=== PATIENT | female | born 1965 | race Hispanic/Latino ===

== ENCOUNTER 2021-06-19 15:21 | Emergency (ER) | payer OTHER ==
[2021-06-19 16:16] LABS: Absolute Lymphocytes (CBC) 2.5 K/uL (0.7-4.9); Hematocrit 45.1 % (36.0-45.0); Lymphocytes % 24.3 % (15.3-44.8); MPV 6.8 fL (7.6-11.3); RBC Red Blood Cell Count 5.19 M/uL (3.86-4.86)
--- NOTE | 2021-06-19 16:21 | RAD REPORT ---
EXAM DESCRIPTION: CT - Head Brain Wo Cont - 06/19/2021 4:10 pm CLINICAL HISTORY: left arm numbness/pain Headache, drowsiness COMPARISON: HEAD BRAIN W O CONTRAST dated 04/13/2010 TECHNIQUE: All CT scans are performed using dose optimization technique as appropriate and may inclu de automated exposure control or mA/KV adjustment according to patient size. FINDINGS: No intracranial hemorrhage, hydrocephalus or extra-axial fluid collection.No areas of brai n edema or evidence of midline shift. The paranasal sinuses and mastoids are clear. The calvarium is intact. IMPRESSION: No acute intracranial abnormality.
[2021-06-19 16:39] LABS: Albumin 3.8 g/dL (3.4-5.0); Bilirubin Direct 0.1 mg/dL (0-0.2); Bilirubin Total 0.6 mg/dL (0.2-1.0); Magnesium 2.3 mg/dL (1.8-2.4); Potassium 3.8 mmol/L (3.5-5.1); Protein, Total 7.7 g/dL (6.4-8.2); Troponin High Sensitivity 5.6 pg/mL (<58.9)
[2021-06-19 16:54] LABS: Urine Blood Trace-intact (Negative); Urine Glucose 3+ (Negative); Urine Protein Negative (Negative); Urine Specific Gravity 1.025 (1.005-1.030); Urine pH 5.5 (5.0-7.0)
[2021-06-19] MEDS ORDERED: KETOROLAC 30 MG/ML INJ ONE (17:09)
[2021-06-19] MEDS ORDERED: LORazepam 2 MG/ML VIAL ONE (17:19)
[2021-06-19 17:29] LABS: Protime INR 1.01
--- NOTE | 2021-06-19 17:41 | RAD REPORT ---
EXAM DESCRIPTION: RAD - Chest Single View - 06/19/2021 5:35 pm CLINICAL HISTORY: left arm pain/numbness Chest pain. COMPARISON: CHEST SINGLE VIEW dated 09/20/2010; CHEST SINGLE VIEW dated 06/12/2009 FINDINGS: Portable technique limits examination quality. The lungs are grossly clear. The heart is normal in size. No displaced fractures. IMPRESSION: No acute intrathoracic process suspected.
--- NOTE | 2021-06-19 18:11 | ER ---
Nurse's Notes [facility] Name: Evon Dumont Age: 56 yrs Sex: Female : 1965 Arrival Date: 06/19/2021 Time: 15:28 Bed 13 Private MD: Diagnosis: Paresthesia of skin-left arm;Pain in left arm Presentation: 06/19 15:31 Chief complaint: Patient states: L arm pain and numbness for 5 days getting ll1 progressively worse. No trauma or falls. Coronavirus screen: Vaccine status: Patient reports being unvaccinated. Client denies travel out of the [place] in the last 14 days. At this time, the client does not indicate any symptoms associated with coronavirus-19. Ebola Screen: Patient denies travel to an Ebola-affected area in the 21 days before illness onset. Initial Sepsis Screen: Does the patient meet any 2 criteria? No. Patient's initial sepsis screen is negative. Does the patient have a suspected source of infection? No. Patient's initial sepsis screen is negative. Risk Assessment: Do you want to hurt yourself or someone else? Patient reports no desire to harm self or others. Onset of symptoms was June 14, 2021. 15:31 Method Of Arrival: Ambulatory ll1 15:31 Acuity: LORI 4 ll1 Triage Assessment: 15:55 General: Appears in no apparent distress. Behavior is calm. 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 - Social history:: Smoking status: Patient denies any tobacco usage or history of. Screenin:13 Abuse screen: Denies threats or abuse. Denies injuries from another. Nutritional jg9 screening: No deficits noted. Tuberculosis screening: No symptoms or risk factors identified. Fall Risk None identified. Assessment: 15:55 Pain: Complains of pain in left arm-intermittnt left arm and shoulder pain secondary to jg9 numbness/tingling in left arm per patient. Neuro: Reports numbness in left arm. Vital Signs: 15:31 BP 128 / 70; Pulse 78; Resp 16; Temp 97.0; Pulse Ox 97% ; Weight 92.99 kg; Height 5 ft. ll1 8 in. (172.72 cm); Pain 5/10; 16:00 BP 120 / 79; Pulse 72; Resp 14 S; Pulse Ox 98% on R/A; jg9 17:45 BP 117 / 57; Pulse 66; Resp 15 S; Pulse Ox 98% on R/A; jg9 18:00 BP 113 / 53; Pulse 67; Resp 17 S; Pulse Ox 97% on R/A; jg9 15:31 Body Mass Index 31.17 (92.99 kg, 172.72 cm) ll1 ED Course: 15:28 Patient arrived in ED. mr 15:32 Triage completed. ll1 15:33 Arm band placed on Patient placed in an exam room, on a stretcher. ll1 15:35 David Diaz PA is PHCP. cp 15:35 David Bar MD is Attending Physician. cp 15:48 Lisa Baird, SHRUTI is Primary Nurse. jg9 15:55 Patient has correct armband on for positive identification. Bed in low position. Call jg9 light in reach. 16:00 Inserted saline lock: 22 gauge in right forearm, using aseptic technique. Blood jg9 collected. 16:10 CT Head Brain wo Cont In Process Unspecified. EDMS 17:35 XRAY Chest (1 view) In Process Unspecified. EDMS 17:58 No apparent distress. ED physician to see patient. jg9 18:09 Sukh Viera MD is Referral Physician. cp 18:20 No provider procedures requiring assistance completed. jg9 18:20 IV discontinued. jg9 Administered Medications: 17:17 CANCELLED (Physician Discretion): Ativan (LORazepam) 0.5 mg IVP once cp 17:30 Drug: Ketorolac 15 mg Route: IVP; Site: right forearm; jg9 18:12 Follow up: Response: No adverse reaction jg9 18:01 Not Given (Physician Discretion): Ativan (LORazepam) 1 mg IVP once cp Point of Care Testing: Urine : 17:05 hCG Reading: Negative; Control Reading: Positive; jg9 Outcome: 18:10 Discharge ordered by . cp 18:20 Discharged to home jg9 18:20 Condition: stable 18:20 Discharge instructions given to patient, Instructed on discharge instructions, follow up and referral plans. Demonstrated understanding of instructions, follow-up care, medications, Prescriptions given X 2. 18:20 Patient left the ED. jg9 Signatures: Dispatcher [employer] EDNH Adair Maida patino David Diaz PA PA cp Lewis, Lynsay, RN RN ll1 Lisa Baird RN RN jg9
--- NOTE | 2021-06-19 18:11 | EDPHYS ---
Physician Documentation [facility] Name: Evon Dumont Age: 56 yrs Sex: Female : 1965 Arrival Date: 06/19/2021 Time: 15:28 Bed 13 Private MD: ED Physician David Bar HPI: 06/19 15:45 This 56 yrs old Female presents to ER via Ambulatory with complaints of cp Numbness Of Arm. 15:45 The patient or guardian complains of pain, that is acute, numbness. The complaints cp affect the left arm. Onset: The symptoms/episode began/occurred 5 day(s) ago. 15:45 Context: resulted from unknown cause. cp 15:45 Associated signs and symptoms: Pertinent negatives: decreased range of motion, cp deformity, fever, weakness. Severity of symptoms: in the emergency department the symptoms are unchanged, despite home interventions. 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 - Social history:: Smoking status: Patient denies any tobacco usage or history of. ROS: 15:50 Constitutional: Negative for body aches, chills, fever, poor PO intake. cp 15:50 Cardiovascular: Negative for chest pain, palpitations. cp 15:50 Eyes: Negative for injury, pain, redness, and discharge. cp 15:50 ENT: Negative for drainage from ear(s), ear pain, sore throat, difficulty swallowing, difficulty handling secretions. 15:50 Respiratory: Negative for cough, shortness of breath, wheezing. 15:50 Abdomen/GI: Negative for abdominal pain, nausea, vomiting, and diarrhea. 15:50 Back: Positive for pain at rest, of the left scapular area, Negative for injury or acute deformity. 15:50 MS/extremity: Positive for pain, paresthesias, of the left arm, Negative for injury or acute deformity, decreased range of motion, warmth. 15:50 Neuro: Negative for altered mental status, headache, weakness. 15:50 All other systems are negative. Exam: 15:55 Constitutional: The patient appears in no acute distress, alert, awake, cp non-diaphoretic, non-toxic, well developed, well nourished. 15:55 Head/Face: Normocephalic, atraumatic. cp 15:55 Eyes: Periorbital structures: appear normal, Conjunctiva: normal, no exudate, no injection, Sclera: no appreciated abnormality, Lids and lashes: appear normal, bilaterally. 15:55 ENT: External ear(s): are unremarkable, Nose: is normal, Mouth: Lips: moist, Oral mucosa: moist, Posterior pharynx: Airway: no evidence of obstruction, patent. 15:55 Neck: C-spine: vertebral tenderness, is not appreciated, crepitus, is not appreciated, ROM/movement: is normal, is supple, without pain, no range of motions limitations, no nuchal rigidity. 15:55 Chest/axilla: Inspection: normal. 15:55 Cardiovascular: Rate: normal, Rhythm: regular. 15:55 Respiratory: the patient does not display signs of respiratory distress, Respirations: normal, no use of accessory muscles, no retractions, labored breathing, is not present, Breath sounds: are clear throughout, no decreased breath sounds, no stridor, no wheezing. 15:55 Abdomen/GI: Exam negative for discomfort, distension, guarding, Inspection: abdomen appears normal. 15:55 Back: pain, that is mild, of the left scapular area, tenderness to palpation, ROM is normal, vertebral tenderness, is not appreciated. 15:55 Musculoskeletal/extremity: Extremities: grossly normal except: noted in the left arm: pain, tenderness, There is no evidence of decreased ROM, swelling, the left arm decreased sensation. 15:55 Skin: cellulitis, is not appreciated, no rash present. 15:55 Neuro: Orientation: to person, place \T\ time. Mentation: is normal, Motor: moves all fours, strength is normal. 16:08 ECG was reviewed by the Attending Physician. cp Vital Signs: 15:31 BP 128 / 70; Pulse 78; Resp 16; Temp 97.0; Pulse Ox 97% ; Weight 92.99 kg; Height 5 ft. ll1 8 in. (172.72 cm); Pain 5/10; 16:00 BP 120 / 79; Pulse 72; Resp 14 S; Pulse Ox 98% on R/A; jg9 17:45 BP 117 / 57; Pulse 66; Resp 15 S; Pulse Ox 98% on R/A; jg9 18:00 BP 113 / 53; Pulse 67; Resp 17 S; Pulse Ox 97% on R/A; jg9 15:31 Body Mass Index 31.17 (92.99 kg, 172.72 cm) ll1 MDM: 15:38 Patient medically screened. cole 16:00 Differential diagnosis: bulging cervical disc, muscle strain, peripheral neuropathy, cp CVA. 17:55 Physician consultation: Sukh Viera MD was called at 17:53, was contacted at 17:53, cp regarding consult, patient's condition, would like further tests performed, CT head angio and CT neck angio. 18:02 ED course: Patient reports she will be unable to tolerate having MRI performed due to cp claustrophobia and reports allergy to iodine. 18:10 Data reviewed: vital signs, nurses notes, lab test result(s), EKG, radiologic studies, cp CT scan, plain films, I have discussed the patient's presentation/case with the attending Emergency Department Physician; and as a result, I will discharge patient. 06/19 15:42 Order name: Basic Metabolic Panel; Complete Time: 16:56 cp 06/19 16:56 Interpretation: Normal except: CL 109; GLUC 110; GFR 63. cp 06/19 15:42 Order name: CBC with Diff; Complete Time: 16:56 cp 06/19 16:56 Interpretation: Normal except: RBC 5.19; HCT 45.1; MPV 6.8. cp 06/19 15:42 Order name: LFT's; Complete Time: 16:56 cp 06/19 17:41 Interpretation: Normal except: ALK 122; GLOB 3.9; A/G 1.0. cp 06/19 15:42 Order name: Magnesium; Complete Time: 16:56 cp 06/19 15:42 Order name: NT PRO-BNP; Complete Time: 16:56 cp 06/19 15:42 Order name: PT-INR; Complete Time: 17:41 cp 06/19 17:41 Interpretation: Reviewed. cp 06/19 15:42 Order name: Troponin HS; Complete Time: 16:56 cp 06/19 15:42 Order name: XRAY Chest (1 view); Complete Time: 17:52 cp 06/19 15:42 Order name: CT Head Brain wo Cont; Complete Time: 16:56 cp 06/19 17:42 Interpretation: Report reviewed. 06/19 16:54 Order name: Urine Dipstick-Ancillary; Complete Time: 16:56 EDMS 06/19 17:41 Interpretation: Normal except: UGLUC 3+; UKET Trace; UBLD Trace-intact. cp 06/19 15:42 Order name: EKG; Complete Time: 15:43 cp 06/19 15:42 Order name: Cardiac monitoring; Complete Time: 16:40 cp 06/19 15:42 Order name: EKG - Nurse/Tech; Complete Time: 16:40 cp 06/19 15:42 Order name: IV Saline Lock; Complete Time: 16:40 cp 06/19 15:42 Order name: Labs collected and sent; Complete Time: 16:40 cp 06/19 15:42 Order name: O2 Sat Monitoring; Complete Time: 16:40 cp 06/19 15:43 Order name: Urine Dipstick-Ancillary (obtain specimen); Complete Time: 17:02 06/19 15:43 Order name: Urine Test (obtain specimen); Complete Time: 17:05 06/19 16:23 Order name: Labs - recollect needed: recollect blue top; Complete Time: 17:19 bd EC:08 Rate is 71 beats/min. Rhythm is regular. DE interval is normal. QRS interval is normal. cp QT interval is normal. T waves are Inverted in lead aVR. Interpreted by me. Reviewed by me. Administered Medications: 17:17 CANCELLED (Physician Discretion): Ativan (LORazepam) 0.5 mg IVP once cp 17:30 Drug: Ketorolac 15 mg Route: IVP; Site: right forearm; jg9 18:12 Follow up: Response: No adverse reaction jg9 18:01 Not Given (Physician Discretion): Ativan (LORazepam) 1 mg IVP once cp Point of Care Testing: Urine : 17:05 hCG Reading: Negative; Control Reading: Positive; jg9 Disposition: 06/20 08:28 Co-signature as Attending Physician, David Bar MD I agree with the assessment and cole plan of care. Disposition Summary: 06/19/21 18:10 Discharge Ordered Location: Home cp Problem: new cp Symptoms: have improved cp Condition: Stable cp Diagnosis - Paresthesia of skin - left arm cp - Pain in left arm cp Followup: cp - With: Sukh Viera MD - When: 1 week - Reason: Recheck today's complaints Discharge Instructions: - Discharge Summary Sheet cp - Musculoskeletal Pain cp - Paresthesia cp Forms: - Medication Reconciliation Form cp - Thank You Letter cp - Antibiotic Education cp - Prescription Opioid Use cp Prescriptions: - Cyclobenzaprine 10 mg Oral Tablet - take 1 tablet by ORAL route every 8 hours As needed; 20 tablet; Refills: 0, cp Product Selection Permitted - Diclofenac Sodium 75 mg Oral tablet,delayed release (DR/EC) - take 1 tablet by ORAL route 2 times per day; 20 tablet; Refills: 0, Product cp Selection Permitted Signatures: Dispatcher [employer] EDGracie Fox Corey, MD MD cha Page, Corey, PA PA cp Lewis, Lynsay, RN RN ll1 Lisa Baird RN RN jg9 Corrections: (The following items were deleted from the chart) 06/19 17:17 17:11 Ativan (LORazepam) 0.5 mg IVP once ordered. cp cp
[2021-06-19 18:38] VITALS: TEMP 97
[2021-06-19 18:52] VITALS: BP 113/53; O2SAT 97
--- NOTE | 2021-06-21 15:17 | EKG ---
Test Date: 2021-06-19 Test Time: 15:58:02 Director Child Abuse Therapy: LESTER MEASUREMENT RESULTS: Intervals: Rate: 71 AK: 166 QRSD: 82 QT: 390 QTc: 423 [place]: P: 39 AK: 166 QRS: 29 T: 13 INTERPRETIVE STATEMENTS: Normal sinus rhythm Normal ECG Compared to ECG 09/19/2010 23:18:18 No significant changes Electronically Signed On 06-21-21 15:14:57 [employer] by Jimmy Deleon
== END 2021-06-19 18:20 | disposition home or self-care (01) ==
LOC: ER 15:21
DX: M79.602 Pain in left arm (principal); E11.9 Type 2 diabetes mellitus without complications; Z88.5 Allergy status to narcotic agent
CPT/HCPCS: 36415; 70450; 71045; 80048; 80076; 81003; 83735; 83880; 84484; 85025; 85610; 93005; 96374; 99284